=== PATIENT | female | born 1960 | race Caucasian/White ===

== ENCOUNTER → 2023-04-28 | Outpatient (CLI) | payer SELFPAY ==
--- NOTE | 2023-04-28 15:55 | CT_ITS ---
EXAM: CT RIGHT UPPER EXTREMITY WITHOUT INTRAVENOUS CONTRAST CLINICAL INDICATION: PAIN IN RIGHT WRIST TECHNIQUE: Helically acquired images were obtained of the right upper extremity without intravenous contrast. 2-D reformats were performed by the technologist. This CT exam was performed using one or more of the following dose reduction techniques: automated exposure control, adjustment of the mA and/or kV according to patient size, and/or use of iterative reconstruction technique. CONTRAST: None RADIATION DOSE: CTDIvol = 24.58 mGy, DLP = 382.37 mGy-cm COMPARISON: No relevant prior studies available. FINDINGS: BONES/JOINTS: Severely comminuted intra-articular displaced fracture of the distal radius. Displaced fracture of the ulnar styloid. The carpal bones appear intact. Preservation of the joint space. No sclerotic or destructive changes. The joint spaces are within normal limits. No evidence of dislocation. SOFT TISSUES: Diffuse soft tissue swelling and edema of the visualized head and pelvis. No radiopaque foreign body. CT/Extremity Upper without Contra IMPRESSION: 1. Severely comminuted intra-articular displaced fracture of the distal radius. 2. Displaced fracture of the ulnar styloid. Electronically Signed: Maximus Chirinos MD at 16:54 EST ,
--- OUTSIDE RECORDS SUMMARY | 2023-04-28 19:58 | XMS RPT_ITS | CCD ---
Author Name Unknown Address [address] [place] [address] Organization [facility] Care Team Providers Care Imaging Analyst Name Role Phone Malgorzata Granados MD Unavailable Malgorzata Granados MD Unavailable Jabier GARCÍA, Teto Crespo Unavailable Clif FULLERN, Yumiko Unavailable Unavailable Charla CALLE, Annette Crespo Unavailable Unavaila chris Maciel TELECOMMUNICATION EQUIPMENT REPAIRER, Mir Unavailable Unavailable Shree CMA, Darlene Unavailable Unavailable [place] TELECOMMUNICATION EQUIPMENT REPAIRER, Poly Darden Unavailable Unavailab sindi Russ TELECOMMUNICATION EQUIPMENT REPAIRER, Bonnie Unavailable Unavailabl e Unavailable Unavailable MALGORZATA GRANADOS Consulting Unavailable MALGORZATA GRANADOS Referring Unavailable YANET CAICEDO DO Admitting Unavailable YANET CAICEDO DO Primary Care Unavailable YANET CAICEDO DO Attending Unavailable PROVIDER, UNKNOWN Consulting Unavailable PROVIDER, UNKNOWN Consulting Unavailable PROVIDER, UNKNOWN Consulting Unavailable Allergies Allergy Classification Reported Allergen(s) Allergy Type Date of Onset Reaction(s) Facility (2 sources) penicillin G benzathine / penicillin G procaine Drug Allergy [facility]; [facility] (1 source) Penicillin Drug Allergy [facility] Repository Medications Current Medications Medication Drug Class(es) Dates Sig (Normalized) Sig (Original) lisinopril 20 mg oral tablet (2 sources) Angiotensin Converting Enzyme Inhibitor Start: 11-27-2022 lisinopriL 20 mg tablet ; 1 (one) Tablet qd for 0 days Quantity: 90 {Tablet} Refills: 3 Ordered: 27-Nov-2022 MD Malgorzata Granados Start: 27-Nov-2022 Multivitamin Oral Tablet (2 sources) take 1 tablet by mouth once daily Multivitamin Oral Tablet ; 1 daily Completed/Discontinued Medications Medication Drug Class(es) Dates Sig (Normalized) Sig (Original) azithromycin 500 mg oral tablet (6 sources) Macrolide Antimicrobial Start: 11-07-2019 End: 11-10-2019 Azithromycin 500 MG Oral Tablet ; 1 (one) Tablet qd for 3 days for 3 days Quantity: 3 {Tablet} Refills: 0 Ordered: 07-Nov-2019 MD Maglorzata Granados Start: 07-Nov-2019 End: 10-Nov-2019 Status: Inactive Problems Active Problems Problem Classification Problem Date Documented Da te Episodic/Chronic Allergic reactions (4 sources) Atopic dermatitis; Translations: [Atopic dermatitis, unspecified] 01-27-2011 Chronic Essential hypertension (18 sources) Hypertensive disorder; Translations: [Essential (primary) hypertension] 11-27-2022 Chronic Influenza (8 sources) Influenza due to Influenza A virus subtype H1N1; Translations: [Influenza due to other identified influenza virus with unspecified type of pneumonia] Onset: 05-29-2019 04-09-2020 Episodic Influenza (2 sources) Influenza 10-07-2019 Other aftercare (4 sources) Drug indicated; Translations: [Other bed bug exterminator (current) drug therapy] 03-12-2011 Episodic Other circulatory disease (4 sources) Elevated blood-pressure reading without diagnosis of hypertension; Translations: [Elevated blood-pressure reading, without diagnosis of hypertension] 02-23-2018 Episodic Other upper respiratory infections (16 sources) Acute sinusitis; Translations: [Acute sinusitis, unspecified] 11-07-2019 Episodic Pneumonia (except that caused by tuberculosis or sexually transmitted disease) (2 sources) Pneumonia; Translations: [Pneumonia, unspecified organism] 05-29-2019 Episodic Residual codes; unclassified (4 sources) Influenza vaccination declined; Translations: [Immunization not carried out because of patient refusal] 11-27-2022 Episodic Unclassified (2 sources) Follow up for chronic condition - The patient is here for follow-up of hypertension. The patient always takes the prescribed medications. No side effects noted. The patient has an active lifestyle but no regular exercise program. The patient's out of office blood pressure checks occur rarely. The patient states that the disease has no overall impact. Note for Chronic condition follow-up : reviewed by [facility] 11-27-2022 Unclassified (2 sources) Follow up for chronic condition - The patient is here for follow-up of hypertension. The patient always takes the prescribed medications. No side effects noted (no refills needed today.). The patient has an active lifestyle but no regular exercise program. The patient's out of office blood pressure checks occur occasionally (Couple of times a week.) and dietary compliance is fairly good usually adhering to recommendations. The patient states that there is no recent angina or dyspnea, there are no vision changes or weakness, weight has decreased and they do not have headaches. Note for Chronic condition follow-up : reviewed by [facility] 11-06-2021 Unclassified (2 sources) Follow up for chronic condition - The patient is here for follow-up of hypertension. The patient always takes the prescribed medications. No side effects noted. The patient has an active lifestyle but no regular exercise program. The patient's out of office blood pressure checks occur rarely (not often) and dietary compliance is fairly good usually adhering to recommendations. The patient states that there is no recent angina or dyspnea, weight has decreased (down 4 lbs) and they do not have headaches. 11-27-2020 Unclassified (2 sources) Follow Up for Multiple Chronic Conditions - The patient is here for follow-up of hypertension. The patient always takes the prescribed medications. No side effects noted (does not need refill). The patient has an active lifestyle but no regular exercise program. The patient's out of office blood pressure checks occur occasionally (has been running high. Has increased stress.) and dietary compliance is fairly good usually adhering to recommendations. The patient states that there is no recent angina or dyspnea, weight has decreased (down 3 pounds) and headaches are rarely noted. Note for Multiple chronic conditions follow-up : reviewed by [facility] 04-09-2020 Unclassified (2 sources) Follow up for chronic condition - The patient is here for follow-up of hypertension. The patient always takes the prescribed medications. No side effects noted (no refills needed today). The patient has an active lifestyle but no regular exercise program. The patient's out of office blood pressure checks occur occasionally and dietary compliance is fairly good usually adhering to recommendations. The patient states that there is no recent angina or dyspnea, there are no vision changes or weakness, weight has increased (4lbs since ALISA) and they do not have headaches. Note for Chronic condition follow-up : reviewed by [facility] 10-07-2019 Unclassified (2 sources) Follow up for chronic condition - The patient is here for follow-up of hypertension. The patient usually takes the prescribed medications. No side effects noted (did not take on Thursday and due to running out of pills). The patient has an active lifestyle but no regular exercise program. The patient's out of office blood pressure checks occur rarely and dietary compliance is fairly good usually adhering to recommendations. The patient states that there is no recent angina or dyspnea, weight has decreased (9lbs) and headaches are noted often but not on daily basis. Note for Chronic condition follow-up : 03/03/2019 patient was started on Azithromycin for 3 days for sinus symptoms. Continues to have sinus drainage. reviewed by [facility] 03-11-2019 Past or Other Problems Problem Classification Problem Date Documented Da te Episodic/Chronic Unclassified (2 sources) Cold Symptoms - Symptoms include nasal congestion, runny nose, productive cough, fever, chills, general malaise and headache, but do not include ear pain or sore throat. The onset was sudden 3 day(s) ago. The symptoms occur constantly. The patient describes this as moderate in severity and worsening. Current treatment includes non-prescription cold medication. Risk factors do not include smoking. The patient has not been exposed to an individual with a cough, an individual with an upper respiratory infection, an individual with similar symptoms, an individual with strep or secondhand smoke. Medical history includes recurrent sinusitis, but patient denies history of seasonal allergies, recurrent strep pharyngitis, asthma, tonsillectomy or recurrent ear infections. 05-29-2019 Unclassified (2 sources) Hypertension - The onset of the hypertension has been variable. The symptoms include headache (occasionally. Usually stress related.), but do not include chest pain. Note for Hypertension : Has not checked BP in the past couple of weeks. Last office visit (07-13-18) started Lisinopril 10mg daily. reviewed by [facility] 09-07-2018 Unclassified (2 sources) Elevated Blood Pressure - Continues with elevated blood pressures. Denies chest pain. Complains of frequent headaches. reviewed by [facility] 07-13-2018 Unclassified (2 sources) Cold Symptoms - Symptoms include nasal congestion, ear pain (right side), ear fullness, scratchy throat, dry cough, headache and facial pain, but do not include sneezing, runny nose, sore throat or fever. The onset was sudden 2 week(s) ago. The symptoms occur constantly. The patient describes this as moderate in severity and worsening. Current treatment includes non-prescription cold medication. Note for Upper respiratory infection : reviewed by [facility] 02-23-2018 Unclassified (2 sources) Cold Symptoms - Symptoms include nasal congestion, runny nose, hoarseness, productive cough (yellowish) and headache. The onset was gradual 2 week(s) ago. The symptoms occur constantly. The patient describes this as moderate in severity and unchanged. The patient is not currently being treated for this problem. Risk factors do not include smoking. The patient has not been exposed to an individual with similar symptoms. Note for Upper respiratory infection : was using some service cleaner few weeks ago while cleaning and started after that reviewed by [facility] 12-16-2016 Unclassified (2 sources) SInus infection - Pt started in with lots of drainage and cough couple weeks ago. Occassional scratchy throat from drainage. Has pressure under eyes and headache. No ear pain. No fever. Started taking alovert last week but not really help. Also has rash on hands that started couple weeks ago as well. Has not changed any detergent or soaps. More on palm of left hand. Very itchy and has been using OTC cortisone cream but that has not really helped. palm will crack and bleed at times. reviewed by [facility] 01-27-2011 Results Test Name Value Interpretation Reference Range Facil ity Vital Signs Date Time Vital Sign Value Performing Clinician Flynn keller 11-27-2022 08:04-0400 Body weight 86.64 kg Malgorzata Granados MD Work Phone: [employer] 11-27-2022 08:04-0400 Diastolic blood pressure 78 mm[Hg] Malgorzata Granados MD Work Phone: [facility]; [facility] Encounters Encounter Date Encounter Type Care Provider Facility Start: 04-24-2023 End: 04-24-2023 Emergency department patient visit MALGORZATA GRANADOS [facility] Start: 11-27-2022 End: 11-27-2022 Office outpatient visit 15 minutes Malgorzata Granados MD Work Phone: [employer] Start: 11-06-2021 End: 11-06-2021 Office outpatient visit 15 minutes Malgorzata Granados MD Work Phone: [facility] Start: 11-27-2020 End: 11-27-2020 Office outpatient visit 15 minutes Malgorzata Granados MD Work Phone: [employer]. Start: 04-09-2020 End: 04-09-2020 Office outpatient visit 15 minutes Malgorzata Granados MD Work Phone: [employer]. Start: 11-07-2019 End: 11-07-2019 Medication Malgorzata Granados MD Work Phone: [employer]. Start: 10-07-2019 End: 10-07-2019 Patient encounter procedure Malgorzata Granados MD Work Phone: [employer]. Start: 06-07-2019 End: 06-07-2019 Telephone follow-up Malgorzata Granados MD Work Phone: [employer]. Start: 05-28-2019 End: 05-29-2019 Office outpatient visit 25 minutes Malgorzata Granados MD Work Phone: [employer]. Start: 05-17-2019 End: 05-20-2019 Medication Malgorzata Granados MD Work Phone: [employer]. Start: 03-11-2019 End: 03-11-2019 Office outpatient visit 15 minutes Malgorzata Granados MD Work Phone: [employer]. Start: 03-03-2019 End: 03-07-2019 Medication Malgorzata Granados MD Work Phone: [employer]. Start: 09-07-2018 End: 09-07-2018 Office outpatient visit 15 minutes Malgorzata Granados MD Work Phone: [employer]. Start: 07-13-2018 End: 07-13-2018 Office outpatient visit 15 minutes Malgorzata Granados MD Work Phone: [employer]. Start: 02-23-2018 End: 02-23-2018 Office outpatient visit 15 minutes Malgorzata Granados MD Work Phone: [employer]. Start: 12-16-2016 End: 12-16-2016 Office outpatient visit 15 minutes Malgorzata Granados MD Work Phone: [employer] Start: 03-12-2011 End: 03-12-2011 Medication Malgorzata Granados MD Work Phone: [employer] Start: 01-27-2011 End: 01-27-2011 Patient encounter procedure Malgorzata Granados MD Work Phone: [facility] Procedures Date Procedure Procedure Detail Performing Clinician Start: 11-06-2021 End: 11-06-2021 No Known Past Surgical History Darlene Swann [employer] Start: 03-11-2019 End: 03-11-2019 Flu imm no admin doc marisela Malgorzata Santana Work Phone: Plan of Treatment Date Care Activity Detail Author Start: 05-26-2023 Patient encounter procedure Medical; RTN OFFICE VISIT - 6 mos rtn [facility] Start: 26-May-2023 8:10 MD Malgorzata Granados Appointment Request [facility] Immunizations Immunization Date Immunization Notes Care Provider Fa cility NEGATED: Highlighted row has not occurred!03-11-2019 influenza, injectable, quadrivalent, contains preservative Malgorzata Granados MD Work Phone: [employer]; [facility] Social History Date Type Detail Facility Tobacco Use: Tobacco Use: ; C urrent some day smoker. [facility]; [facility] [employer]; [facility] Work Phone: Occasional tobacco smoker [employer]; [facility] Work Phone: Summary Purpose Family History No Family History Records Found Cancer Status:Active Comments:Brother . pancreatic Cerebrovascular Accident Status:Active Comment s:Negative Family History Of. Coronary Artery Disease Status:Active Comments :Negative Family History Of. Hypertension Status:Active Comments:Mother. Cancer Status:Active Comments:Brother . pancreatic Cerebrovascular Accident Status:Active Comment s:Negative Family History Of. Coronary Artery Disease Status:Active Comments :Negative Family History Of. Hypertension Status:Active Comments:Mother. Advance Directives No Advanced Directives Records FoundNo Advanced Directives Records Found Additional Source Comments INFORMATION SOURCE (unrecogn ized section and content) DATE CREATED AUTHOR AUTHOR'S JEAN ATION 04/27/2023 [facility] FOR RECORDS PERTAINING TO PATIENTS WHO ARE OR HAVE BEEN ENROLLED IN A CHEMICAL DEPENDENCY/SUBSTANCEABUSE PROGRAM, SOME INFORMATION MAY BE OMITTED. This clinical summary was aggregated from multiple sources. Caution should be exercised in using it in the provision of clinical care. This summary normalizes information from multiple sources, and as a consequence, information in this document may materially change the coding, format and clinical context of patient data. In addition, data may be omitted in some cases. CLINICAL DECISIONS SHOULD BE BASED ON THE PRIMARY CLINICAL RECORDS. [facility]. provides no warranty or guarantee of the accuracy or completeness of information in this document.
== END | disposition home or self-care (01) ==
PROVIDERS: PCP Family Medicine; Referring Provider Physician Assistant; Visit Provider Physician Assistant
DX: S52.591A Other fractures of lower end of right radius, initial encounter for closed fracture (principal); X58.XXXA Exposure to other specified factors, initial encounter
CPT/HCPCS: 73200